=== PATIENT | female | born 1955 | race Caucasian/White ===

== ENCOUNTER → 2024-01-05 06:30 | Day surgery (SDC) | payer MEDICARE, BC, SELFPAY | LOC: GI 06:30 | PROVIDERS: ATTENDING PHYSICIAN Internal Medicine; FAMILY PHYSICIAN Family Medicine | DX: Q39.9 Congenital malformation of esophagus, unspecified (principal); K44.9 Diaphragmatic hernia without obstruction or gangrene; R11.10 Vomiting, unspecified; R05.3 Chronic cough; R12 Heartburn | CPT/HCPCS: 43239; 88305 ==

== ENCOUNTER → 2024-01-22 07:59 | Outpatient (REF) | payer MEDICARE, BC, SELFPAY | LOC: HWWDC 07:59 | PROVIDERS: ATTENDING PHYSICIAN Family Medicine; REFERRING PHYSICIAN Obstetrics & Gynecology | DX: Z12.31 Encounter for screening mammogram for malignant neoplasm of breast (principal) | CPT/HCPCS: 77063; 77067 ==

== ENCOUNTER → 2024-02-01 12:58 | Outpatient (REF) | payer MEDICARE, BC, SELFPAY | LOC: REG 12:58 | PROVIDERS: ATTENDING PHYSICIAN Family Medicine | DX: J06.9 Acute upper respiratory infection, unspecified (principal); Z87.01 Personal history of pneumonia (recurrent); R06.2 Wheezing | CPT/HCPCS: 71046 ==

== ENCOUNTER → 2024-02-23 10:42 | Outpatient (REF) | payer MEDICARE, BC, SELFPAY | LOC: HWRAD 10:42 | PROVIDERS: ATTENDING PHYSICIAN Internal Medicine Endocrinology, Diabetes & Metabolism; FAMILY PHYSICIAN Family Medicine | DX: M81.0 Age-related osteoporosis without current pathological fracture (principal) | CPT/HCPCS: 77080 ==

== ENCOUNTER → 2024-05-16 09:13 | Outpatient (REF) | payer MEDICARE, BC, SELFPAY | LOC: HWRAD 09:13 | PROVIDERS: ATTENDING PHYSICIAN Internal Medicine Cardiovascular Disease; FAMILY PHYSICIAN Family Medicine | DX: R06.09 Other forms of dyspnea (principal); E78.5 Hyperlipidemia, unspecified | CPT/HCPCS: 75571 ==

== ENCOUNTER → 2024-05-27 13:11 | Outpatient (REF) | payer MEDICARE, BC, SELFPAY | LOC: RCS 13:11 | PROVIDERS: ATTENDING PHYSICIAN Internal Medicine Cardiovascular Disease; FAMILY PHYSICIAN Family Medicine | DX: R06.09 Other forms of dyspnea (principal); E78.5 Hyperlipidemia, unspecified | CPT/HCPCS: 93017; 93350 ==

== ENCOUNTER → 2024-06-03 07:17 | Outpatient (REF) | payer MEDICARE, BC, SELFPAY | LOC: HWRCS 07:17 | PROVIDERS: ATTENDING PHYSICIAN Internal Medicine Cardiovascular Disease; FAMILY PHYSICIAN Family Medicine | DX: R06.09 Other forms of dyspnea (principal); E78.5 Hyperlipidemia, unspecified | CPT/HCPCS: 93306 ==

== ENCOUNTER → 2024-06-12 12:43 | Outpatient (REF) | payer MEDICARE, BC, SELFPAY | LOC: WDC 12:43 | PROVIDERS: ATTENDING PHYSICIAN Obstetrics & Gynecology; FAMILY PHYSICIAN Family Medicine | DX: R92.2 Inconclusive mammogram (principal) | CPT/HCPCS: 76641 ==

== ENCOUNTER → 2025-01-22 11:52 | Outpatient (REF) | payer MEDICARE, BC, SELFPAY | LOC: HWWDC 11:52 | PROVIDERS: ATTENDING PHYSICIAN Family Medicine | DX: Z12.31 Encounter for screening mammogram for malignant neoplasm of breast (principal) | CPT/HCPCS: 77063; 77067 ==

== ENCOUNTER → 2025-02-18 06:59 | Outpatient (REF) | payer MEDICARE, BC, SELFPAY | LOC: MRI 3T 06:59 | PROVIDERS: ATTENDING PHYSICIAN Physician Assistant; FAMILY PHYSICIAN Family Medicine | DX: M54.16 Radiculopathy, lumbar region (principal) | CPT/HCPCS: 72148 ==

== ENCOUNTER → 2025-05-14 07:40 | Outpatient (REF) | payer MEDICARE, BC, SELFPAY | LOC: RAD 07:40 | PROVIDERS: ATTENDING PHYSICIAN Internal Medicine; FAMILY PHYSICIAN Family Medicine | DX: R10.30 Lower abdominal pain, unspecified (principal) | CPT/HCPCS: 74018 ==

== ENCOUNTER → 2025-06-10 09:08 | Outpatient (REF) | payer MEDICARE, BC, SELFPAY | LOC: HWRAD 09:08 | PROVIDERS: ATTENDING PHYSICIAN Nurse Practitioner Adult Health; FAMILY PHYSICIAN Family Medicine | DX: R06.02 Shortness of breath (principal); R91.8 Other nonspecific abnormal finding of lung field; Z80.1 Family history of malignant neoplasm of trachea, bronchus and lung | CPT/HCPCS: 71250 ==

== ENCOUNTER → 2025-07-04 15:17 | Outpatient (REF) | payer MEDICARE, BC, SELFPAY | LOC: HWRAD 15:17 | PROVIDERS: ATTENDING PHYSICIAN Physician Assistant; FAMILY PHYSICIAN Family Medicine | DX: M54.2 Cervicalgia (principal) | CPT/HCPCS: 76536 ==

== ENCOUNTER → 2025-08-19 14:54 | Outpatient (REF) | payer MEDICARE, BC, SELFPAY | LOC: PAVMRI 14:54 | PROVIDERS: ATTENDING PHYSICIAN Physical Medicine & Rehabilitation; FAMILY PHYSICIAN Family Medicine | DX: M54.12 Radiculopathy, cervical region (principal) | CPT/HCPCS: 72141 ==